=== PATIENT | male | born 1965 | race Caucasian/White ===

== ENCOUNTER 2016-10-05 14:11 | Inpatient (IN) | payer OTHER ==
[~2016-10-05] VITALS: Ht 177.8 cm; Wt 69.8 kg
[2016-10-08] MEDS ORDERED: FLUO40CA PO (11:51)
[2016-10-08] MEDS ORDERED: OLAN20TA PO (11:51)
[2016-10-15] MEDS ORDERED: NEOSTIGMINE 3 MG/3 ML SYR IV ONE (12:00)
[2016-10-15] MEDS ORDERED: ONDANSETRON HCL 4 MG/2 ML VIAL IV PUSH ONE (12:00)
[2016-10-15] MEDS ORDERED: LACTATED RINGER'S 1000 ML INJ 1,000 ML IV ONE (12:00)
[2016-10-15] MEDS ORDERED: PHENYLEPH/NS 1000 MCG/10 ML SYR IV ONE (12:00)
[2016-10-15] MEDS ORDERED: PROPOFOL 200 MG/20 ML AMP IV ONE (12:00)
[2016-10-15 12:06] VITALS: BP 127/83; PULSE 66; RESP 16; TEMP 98; O2SAT 99
[2016-10-15] MEDS ORDERED: ALVIMOPAN 12 MG CAPSULE ONE (12:12)
[2016-10-15] MEDS ORDERED: LACTATED RINGER'S 1000 ML IV SCH (12:15)
[2016-10-15] MEDS: SODIUM CHLORID 0.9% 500 ML IV SCH (12:15)
[2016-10-15] MEDS ORDERED: METOPROLOL TARTRATE 25 MG TAB PO PRN (12:15)
[2016-10-15] MEDS ORDERED: ceFAZolin 1,000 MG/NS 100 ML IV SCH ×2 (12:15)
[2016-10-15] MEDS ORDERED: DEXT 5%-NACL 0.9% 1000 ML INJ 1,000 ML IV SCH (12:15)
[2016-10-15] MEDS ORDERED: METRONIDAZOLE 500 MG/100 ML ISONTONIC SOLN IV SCH (12:15)
[2016-10-15] MEDS ORDERED: INSULIN HUMAN REGULAR 1,000 UNITS/10 ML VIAL SQ PRN (12:15)
[2016-10-15] MEDS ORDERED: GLUCAGON 1 MG/ML VIAL ONE (12:24)
[2016-10-15] MEDS ORDERED: BUPIVACAINE HCL PF 0.5% 30 ML VIAL ONE (12:24)
[2016-10-15] MEDS ORDERED: fentaNYL CITRATE 250 MCG/5 ML AMP ONE (13:34)
[2016-10-15] MEDS ORDERED: ACETAMINOPHEN 1000 MG/100 ML VIAL IV ONE (13:34)
[2016-10-15] MEDS ORDERED: FAMOTIDINE 20 MG/2 ML VIAL ONE (13:34)
[2016-10-15] MEDS ORDERED: DEXAMETHASONE SOD PHOS 4 MG/ML VIAL ONE (13:35)
--- NOTE | 2016-10-15 13:36 | PD.HP.UP ---
H&P Update Note The Pre-Admit History and Physical Examination regarding the above named patient was reviewed (including, but not limited to, vital signs, heart, lungs, co-morbid conditions), and upon re-examination it is noted that: the patient's condition has not significantly changed since the last examination. Nimesh Piña MD Oct 15, 2016 13:35
[2016-10-15] MEDS ORDERED: SODIUM CHLORIDE 0.9% FLUSH 5 ML FLUSH IVF PRN (16:30)
[2016-10-15] MEDS ORDERED: BENZOCAINE 6 MG/MENTHOL 10 MG LOZENGE SUCK-ON PRN (16:30)
[2016-10-15] MEDS ORDERED: ENALAPRILAT 2.5 MG/2 ML VIAL IV PRN (16:30)
[2016-10-15] MEDS ORDERED: ACETAMINOPHEN/HYDROcodone 325 MG/5 MG TAB PO PRN (16:30)
[2016-10-15] MEDS ORDERED: ONDANSETRON HCL 4 MG/2 ML VIAL IV PRN (16:30)
[2016-10-15] MEDS ORDERED: Post-op Orders (for Pharmacy) MISC XX ONE (16:30)
[2016-10-15] MEDS ORDERED: NALOXONE HCL 0.4 MG/ML AMP IV PRN (16:30)
[2016-10-15] MEDS ORDERED: ACETAMINOPHEN 325 MG TAB PO PRN (16:30)
[2016-10-15] MEDS ORDERED: POTASSIUM CHLOR 20 MEQ PREMIX 100 ML IV PRN (16:30)
[2016-10-15] MEDS ORDERED: POTASSIUM CHLOR 40 MEQ PREMIX 100 ML IV PRN (16:30)
[2016-10-15] MEDS ORDERED: ENALAPRILAT 1.25 MG/ML VIAL IV PRN (16:30)
[2016-10-15] MEDS ORDERED: MORPHINE SULFATE 4 MG/ML INJ ONE (16:36)
--- NOTE | 2016-10-15 16:36 | HHI.PR ---
Immediate Post Op Note Procedure Date: Oct 15, 2016 Pre Op Diagnosis: Rectal cancer Post Op Diagnosis: same Surgeon: Nimesh Piña Resolution Manager(s): Ben Procedure: Exploratory laparotomy, LAR, ileostomy, omental flap Findings: ulcer at tumor site in distal rectum, mobilization splenic flexure, left lt colic vessels Complications: none Specimen(s) removed: rectosigmoid Estimated blood loss: 150cc Anesthesia: General Drains: VLADIMIR IVF Patient to: PACU Patient Condition: Good Nimesh Piña MD Oct 15, 2016 16:36
[2016-10-15] MEDS ORDERED: *ONDANSETRON 4 MG VIAL PERIprocedural Use ONLY ONE (16:43)
[2016-10-15] MEDS: METOCLOPRAMIDE HCL 10 MG/2 ML VIAL IVS SCH (17:00)
[2016-10-15] MEDS: D5-NS + KCL 20 MEQ INJ 1,000 ML IV SCH ×2 (17:00→21:55)
[2016-10-15] MEDS: MORPHINE SULFATE 30 MG/30 ML PCA IV SCH ×2 (17:01→20:16)
[2016-10-15] MEDS: KETOROLAC TROMETHAMINE 30 MG/ML (IVP) VIAL IVP PRN ×2 (17:03→23:17)
[2016-10-15] MEDS ORDERED: *PROMETHAZINE 25 MG/ML VIAL PERIprocedural use ONLY ONE (17:24)
[2016-10-15] MEDS ORDERED: DO NOT ADM ANY ANTICOAGULANT DRUGS XX PRN (17:30)
[2016-10-15 18:15] VITALS: BP 158/97; PULSE 63; RESP 18; TEMP 97.9; O2SAT 97
[2016-10-15 20:00] VITALS: BP 153/104; PULSE 66; PULSE 80; RESP 16; TEMP 97.5; O2SAT 98
[2016-10-15 21:00] VITALS: PULSE 86
[2016-10-15] MEDS: SODIUM CHLORIDE 0.9% FLUSH 5 ML FLUSH IVF SCH (21:00)
[2016-10-15] MEDS: metroNIDAZOLE 500 MG INJ 100 ML IV SCH (21:52)
[2016-10-15] MEDS: PCA - TOTAL MG MORPHINE DELIVERED PER SHIFT SCH (21:56)
[2016-10-15 22:00] VITALS: PULSE 80
[2016-10-15 23:00] VITALS: BP 155/99; PULSE 76; PULSE 95; RESP 16; TEMP 99.2; O2SAT 94
[2016-10-15] MEDS ORDERED: ACETAMINOPHEN 1000 MG/100 ML VIAL IV PRN (23:45)
[2016-10-16] VITALS (23 sets, daily range): BP systolic 124–134; BP diastolic 76–85; PULSE 68–106; RESP 16–18; TEMP 97.5–100.3; O2SAT 94–98
[2016-10-16] MEDS: MORPHINE SULFATE 30 MG/30 ML PCA IV SCH ×4 (03:25→21:07)
[2016-10-16] MEDS: SODIUM CHLORID 0.9% 500 ML IV SCH (04:55)
[2016-10-16] MEDS: METOCLOPRAMIDE HCL 10 MG/2 ML VIAL IVS SCH ×2 (05:16→18:06)
[2016-10-16] MEDS: PCA - TOTAL MG MORPHINE DELIVERED PER SHIFT SCH ×3 (06:00→19:54)
[2016-10-16] MEDS: D5-NS + KCL 20 MEQ INJ 1,000 ML IV SCH ×2 (06:02→10:09)
[2016-10-16] MEDS: metroNIDAZOLE 500 MG INJ 100 ML IV SCH ×2 (06:02→14:19)
[2016-10-16 06:48] LABS: AUTOMATED NEUTROPHIL # 10.8 TH/MM3 (1.8-7.7); BASOPHIL % 0.2 % (0.0-2.0); HEMATOCRIT 36.5 % (39.0-51.0); LYMPH % 4.5 % (9.0-44.0); LYMPHOCYTE # 0.6 TH/MM3 (1.0-4.8); MEAN CELL VOLUME 88.7 FL (80.0-100.0); MEAN CORPUSCULAR HEMOGLOBIN 29.5 PG (27.0-34.0); MEAN CORPUSCULAR HGB CONC 33.2 % (32.0-36.0); MONO % 7.7 % (0.0-8.0); NEUT % 87.6 % (16.0-70.0); PLATELET COUNT 319 TH/MM3 (150-450); RED BLOOD COUNT 4.11 MIL/MM3 (4.50-5.90); WHITE BLOOD COUNT 12.4 TH/MM3 (4.0-11.0)
[2016-10-16 06:55] LABS: HEMO FLAGS AUTO DIFF
[2016-10-16 07:08] LABS: POTASSIUM 3.9 MEQ/L (3.5-5.1)
[2016-10-16 08:16] LABS: PLATELET ESTIMATE SMEAR NORMAL (NORMAL); PLATELET MORPHOLOGY NORMAL (NORMAL); SCAN/DIFF AUTO DIFF CONFIRMED
[2016-10-16] MEDS: FLUoxetine HCL 20 MG CAP PO SCH (08:16)
[2016-10-16] MEDS: ALVIMOPAN 12 MG CAPSULE PO SCH ×2 (08:16→19:54)
[2016-10-16] MEDS: PANTOPRAZOLE SODIUM 40 MG VIAL IVP SCH (08:16)
[2016-10-16] MEDS: PANTOPRAZOLE SOD 40 MG DELAYED RELEASE TAB PO SCH (08:16)
[2016-10-16] MEDS: SODIUM CHLORIDE 0.9% FLUSH 5 ML FLUSH IVF SCH ×2 (08:17→19:54)
[2016-10-16] MEDS: OLANZapine 10 MG TAB PO SCH (09:00)
[2016-10-16] MEDS: KETOROLAC TROMETHAMINE 30 MG/ML (IVP) VIAL IVP PRN ×2 (12:31→19:53)
[2016-10-17] VITALS: BP 118/69; PULSE 76; RESP 16; TEMP 97.2; O2SAT 95
[2016-10-17] MEDS: D5-NS + KCL 20 MEQ INJ 1,000 ML IV SCH ×2 (01:10→12:01)
[2016-10-17] MEDS: KETOROLAC TROMETHAMINE 30 MG/ML (IVP) VIAL IVP PRN ×3 (02:21→17:52)
[2016-10-17 04:00] VITALS: BP 130/84; PULSE 74; RESP 16; TEMP 97.7; O2SAT 96
[2016-10-17] MEDS: METOCLOPRAMIDE HCL 10 MG/2 ML VIAL IVS SCH ×2 (05:00→17:39)
[2016-10-17 05:08] LABS: AUTOMATED NEUTROPHIL # 6.7 TH/MM3 (1.8-7.7); BASOPHIL % 0.5 % (0.0-2.0); EOSINOPHIL # 0.1 TH/MM3 (0-0.4); EOSINOPHIL % 1.6 % (0.0-4.0); HEMATOCRIT 31.8 % (39.0-51.0); HEMO FLAGS DIFF FINAL; LYMPHOCYTE # 0.7 TH/MM3 (1.0-4.8); MEAN CELL VOLUME 90.2 FL (80.0-100.0); MEAN CORPUSCULAR HEMOGLOBIN 30.1 PG (27.0-34.0); MEAN CORPUSCULAR HGB CONC 33.3 % (32.0-36.0); MONO % 9.6 % (0.0-8.0); NEUT % 80.3 % (16.0-70.0); PLATELET COUNT 285 TH/MM3 (150-450); RED BLOOD COUNT 3.52 MIL/MM3 (4.50-5.90); RED CELL DISTRIBUTION WIDTH 16.1 % (11.6-17.2); WHITE BLOOD COUNT 8.3 TH/MM3 (4.0-11.0)
[2016-10-17 05:38] LABS: BICARBONATE 27.1 MEQ/L (21.0-32.0); POTASSIUM 3.8 MEQ/L (3.5-5.1)
[2016-10-17] MEDS: PCA - TOTAL MG MORPHINE DELIVERED PER SHIFT SCH ×3 (05:45→22:00)
[2016-10-17] MEDS: MORPHINE SULFATE 30 MG/30 ML PCA IV SCH ×3 (06:17→22:10)
[2016-10-17 08:01] VITALS: BP 121/84; PULSE 72; RESP 17; TEMP 97.8; O2SAT 96
[2016-10-17] MEDS: FLUoxetine HCL 20 MG CAP PO SCH (08:19)
[2016-10-17] MEDS: PANTOPRAZOLE SODIUM 40 MG VIAL IVP SCH (08:19)
[2016-10-17] MEDS: ALVIMOPAN 12 MG CAPSULE PO SCH ×2 (08:20→22:11)
[2016-10-17] MEDS: SODIUM CHLORIDE 0.9% FLUSH 5 ML FLUSH IVF SCH ×2 (08:20→21:00)
[2016-10-17] MEDS: PANTOPRAZOLE SOD 40 MG DELAYED RELEASE TAB PO SCH (08:20)
[2016-10-17] MEDS: OLANZapine 10 MG TAB PO SCH (08:20)
[2016-10-17 12:00] VITALS: BP 146/84; PULSE 82; RESP 17; TEMP 97.1; O2SAT 97
[2016-10-17 16:00] VITALS: BP 136/87; PULSE 76; RESP 17; TEMP 97.5; O2SAT 98
[2016-10-17 20:00] VITALS: BP 139/82; PULSE 74; RESP 18; TEMP 97.4; O2SAT 98
--- NOTE | 2016-10-17 22:26 | HHI.PR ---
Subjective Remarks C/R surg POD #2 afebrile, VSS UO good VLADIMIR mod stoma functioning Objective - Vital Signs Date Time Temp Pulse Resp B/P Pulse Ox O2 Delivery O2 Flow Rate FiO2 10/17/16 22:10 18 10/17/16 16:00 97.5 76 136/87 98 10/16/16 03:32 Nasal Cannula 2.00 Result Diagram: 10/17/16 0420 10/17/16 0450 Objective Remarks PE alert Abd - soft, wound clean, VLADIMIR serous A/P Assessment and Plan Imp: adv diet, decr IVF OOB dc plans Nimesh Piña MD Oct 17, 2016 22:26
[2016-10-18] VITALS: BP 128/92; PULSE 69; RESP 16; TEMP 98.5; O2SAT 99
[2016-10-18] MEDS: D5-NS + KCL 20 MEQ INJ 1,000 ML IV SCH ×3 (01:21→21:39)
[2016-10-18] MEDS: KETOROLAC TROMETHAMINE 30 MG/ML (IVP) VIAL IVP PRN ×2 (01:31→14:29)
[2016-10-18] MEDS: METOCLOPRAMIDE HCL 10 MG/2 ML VIAL IVS SCH (05:00)
[2016-10-18] MEDS: PCA - TOTAL MG MORPHINE DELIVERED PER SHIFT SCH (05:54)
[2016-10-18] MEDS: MORPHINE SULFATE 30 MG/30 ML PCA IV SCH (07:26)
--- NOTE | 2016-10-18 07:41 | HHI.FF ---
Face to Face Verification Diagnosis: (1) Rectal cancer metastasized to intrapelvic lymph node Home Health Nursing Order: Medical education Signs/symptoms of disease process Wound care and dressing changes I have seen patient Mars Warren on 10/18/16. My clinical findings support the need for the requested home health care services because: Ltd mobility - disease progression Deconditioned w/ increased weakness I certify that my clinical findings support that this patient is homebound because: Post-op weakness Need for psychosocial assistance Nimesh Piña MD Oct 18, 2016 07:41
[2016-10-18 08:00] VITALS: BP 130/86; PULSE 72; RESP 18; TEMP 96.4; O2SAT 94
[2016-10-18] MEDS: SODIUM CHLORIDE 0.9% FLUSH 5 ML FLUSH IVF SCH ×2 (08:15→21:39)
[2016-10-18] MEDS: FLUoxetine HCL 20 MG CAP PO SCH (08:15)
[2016-10-18] MEDS: OLANZapine 10 MG TAB PO SCH (08:15)
[2016-10-18] MEDS: PANTOPRAZOLE SOD 40 MG DELAYED RELEASE TAB PO SCH (08:15)
[2016-10-18] MEDS: PANTOPRAZOLE SODIUM 40 MG VIAL IVP SCH (08:15)
[2016-10-18] MEDS: ALVIMOPAN 12 MG CAPSULE PO SCH ×2 (08:15→21:37)
[2016-10-18 12:00] VITALS: BP 108/76; PULSE 77; RESP 17; TEMP 96.7; O2SAT 98
[2016-10-18] MEDS: ACETAMINOPHEN/HYDROcodone 325 MG/5 MG TAB PO PRN ×3 (14:29→23:11)
[2016-10-18 16:00] VITALS: BP 109/81; PULSE 68; RESP 17; TEMP 98.5; O2SAT 97
--- NOTE | 2016-10-18 16:50 | MP ---
cc: LINH DE LEON M.D. DATE OF SURGERY: 10/15/2016 PREOPERATIVE DIAGNOSIS: Rectal cancer. PROCEDURE Exploratory laparotomy with proctosigmoidectomy, low pelvic anastomosis diverting ileostomy and omental flap. POSTOPERATIVE DIAGNOSIS Exploratory laparotomy with proctosigmoidectomy, low pelvic anastomosis diverting ileostomy and omental flap. SURGEON Dr. De Leon. SALES REPRESENTATIVE PRINTING PAPER: Dr. Yair Contreras PROCEDURE The patient was placed in the supine position. After adequate general anesthesia his legs were placed in [place] stirrups and supported appropriately. The abdomen and perineum were then prepped with Betadine solution and draped in the usual sterile fashion. With Dr. Contreras assistance the abdomen was opened through a midline incision. Exploration revealed the colon to be palpably normal without any obvious tumor even palpable below the cul-de-sac the small bowel was run from ligament of Treitz down to ileocecal valve and felt to be normal liver and gallbladder were unremarkable. The stomach and duodenum were normal. Great vessels were of normal caliber and fairly soft. First the sigmoid colon was mobilized medially by dividing along the white line of Toldt. The left ureter was identified and carefully preserved. Dissection then proceeded up the left gutter taking freeing the left colon off the retroperitoneum, taking down the splenic flexure entering the lesser sac. The omentum was then taken off the transverse colon. The right retroperitoneal space was then opened and the bowel dissected off the presacral fascia. The pedicle for the superior hemorrhoidal vessels identified and divided between 's obtaining hemostasis with Vicryl ties. The left colic vessels were able to be left. Dissection then proceeded down into the pelvis, elevating the bowel off the presacral fascia preserving the presacral nerves. Anteriorly the cul-de-sac was opened and the bowel dissected off the seminal vesicles on the prostatic capsule. After the pelvic floor was reached, anoscopy revealed a ulceration at the site of the previous tumor which had a distal margin just about above the dentate line. After full mobilization down to the pelvic floor. The bowel was able to be divided using the contour stapling device ensuring an adequate margin below the rectal ulcer. The bowel was then incised to reach the short rectal pouch without tension and with good blood supply, dividing the marginal artery at the appropriate point. The end of the bowel was then divided between a pursestring suture device and a Abelino clamp. The bowel was sized to accept an EEA stapling anvil and this was secured with a pursestring suture. Dr. Contreras inserted the EEA stapling instrument transanally under direct vision it was brought up to the staple line and the trocar advanced. The stapler was then reassembled closed and fired. Upon withdrawal two complete doughnuts of tissue was seen. Gentle insufflation did confirm an airtight anastomosis. The abdomen was then irrigated copiously with normal saline. Adequate hemostasis achieved. Clem-Jimenez drain was placed into the presacral space and brought up through a stab wound in the right lower quadrant secured to the skin with a nylon suture. The omentum was taken off the transverse colon passed down the left gutter and wrapped around the anastomosis. A circular stab wound was then created in the right midabdomen and a loop of distal ileum was chosen for the ileostomy. Avascular plane created in the mesentery and the distal end of the loop closed with a TA 60 stapling firing. The loop was then brought up through the stab wound without tension and with good blood supply. Midline incision closed anatomically with a running #1 PDS suture. Subcutaneous tissue was irrigated copiously and the skin closed with a running subcuticular suture of 3-0 Vicryl. Wound area washed with normal saline and dried, sterile dressing of Telfa and gauze applied. Finally the loop ileostomy was matured in the usual [place] fashion by creating an enterotomy above the staple line and maturing the proximal limb with a running chromic catgut suture. At completion the stoma did appear to be viable and was patent through the fascial level. Wound area washed with normal saline and dried, sterile dressing of Telfa and gauze applied. The patient tolerated the procedure quite well and was brought to recovery room in stable condition. The sponge and needle counts were correct at the end of the procedure. MD RAFAELA Dolan/ginna /12:09 AM /4:37 PM
[2016-10-18] MEDS ORDERED: METOCLOPRAMIDE HCL 10 MG/2 ML VIAL IVS PRN (17:00)
[2016-10-18 20:00] VITALS: BP 107/75; PULSE 69; RESP 17; TEMP 97.7; O2SAT 97
--- NOTE | 2016-10-18 20:35 | HHI.PR ---
Subjective Remarks C/R surg POD #3 afebrile, VSS UO good VLADIMIR mod stoma functioning Objective - Vital Signs Date Time Temp Pulse Resp B/P Pulse Ox O2 Delivery O2 Flow Rate FiO2 10/18/16 16:00 98.5 68 17 109/81 97 10/16/16 03:32 Nasal Cannula 2.00 Result Diagram: 10/17/16 0420 10/17/16 0450 Objective Remarks PE alert Abd - soft, wound clean, VLADIMIR serous, stoma liquid A/P Assessment and Plan Imp: adv diet, decr IVF OOB dc plans path reviwed Nimesh Piña MD Oct 18, 2016 20:35
[2016-10-19] VITALS: BP 142/82; PULSE 59; RESP 17; TEMP 96.5; O2SAT 97
[2016-10-19] MEDS: ACETAMINOPHEN/HYDROcodone 325 MG/5 MG TAB PO PRN ×4 (04:15→16:34)
[2016-10-19 08:00] VITALS: BP 124/86; PULSE 72; RESP 16; TEMP 98.1; O2SAT 95
[2016-10-19] MEDS: PANTOPRAZOLE SOD 40 MG DELAYED RELEASE TAB PO SCH (08:10)
[2016-10-19] MEDS: OLANZapine 10 MG TAB PO SCH (08:11)
[2016-10-19] MEDS: PANTOPRAZOLE SODIUM 40 MG VIAL IVP SCH (08:11)
[2016-10-19] MEDS: ALVIMOPAN 12 MG CAPSULE PO SCH (08:11)
[2016-10-19] MEDS: SODIUM CHLORIDE 0.9% FLUSH 5 ML FLUSH IVF SCH (08:11)
[2016-10-19] MEDS: FLUoxetine HCL 20 MG CAP PO SCH (08:11)
[2016-10-19 12:00] VITALS: BP 111/78; PULSE 83; RESP 20; TEMP 97.3; O2SAT 96
[2016-10-19 16:00] VITALS: BP 113/93; PULSE 74; RESP 18; TEMP 97.4; O2SAT 98
[2016-10-19] MEDS ORDERED: HYDR-3516 PO (17:15)
--- NOTE | 2016-10-26 18:28 | PQ ---
Physician Query Response Document PATIENT: MOSES NAVARRO : 1965 ADMIT DATE: 10/15/2016 11:26 AM DISCH DATE: 10/19/2016 6:49 PM RESPONDING PROVIDER #: [email or web address] QUERY TEXT: Clarification of Clinical Diagnostic Findings Please clarify documentation or clinical relevance for the clinical / diagnostic findings or whether those are insignificant or unable to be further specified. Please review patient's pathology report. Do you agree with pathologist's diagnosis of pT3,pN2b. 1)agree 2)disagree 3)other diagnosis(please specify) If you have any additional questions/comments and/or concerns please call [employer] Hotline @[phone] The patient's Clinical Indicators include: Dr. DE LEON,this patient underwent proctosigmoidectomy with excision of lymph nodes. The pathologist gives the diagnosis of pT3,pN2b. Please review the question below and answer to the best of your ability. THANK YOU Query created by: Harshad Solares on 10/23/2016 7:29 AM RESPONSE TEXT: I agree Electronically signed by: Nimesh De Leon MD 10/26/2016 6:25 PM
== END 2016-10-19 18:49 | disposition home or self-care (01) | DRG 330 ==
LOC: HSDI 10-15 11:26 → EDUNIT# 10-15 14:00 → HCIN 10-15 17:47 → N07A 10-16 16:19
PROVIDERS: ADMIT Colon & Rectal Surgery; ATTEND Colon & Rectal Surgery
PROC: 0WUF07Z Supplement Abdominal Wall with Autologous Tissue Substitute, Open Approach (ICD-10-PCS; 2016-10-15)
PROC: 0D1B0Z4 Bypass Ileum to Cutaneous, Open Approach (ICD-10-PCS; 2016-10-15)
PROC: 0WJP0ZZ Inspection of Gastrointestinal Tract, Open Approach (ICD-10-PCS; 2016-10-15)
PROC: 0DJD8ZZ Inspection of Lower Intestinal Tract, Via Natural or Artificial Opening Endoscopic (ICD-10-PCS; 2016-10-15)
PROC: 0DBN0ZZ Excision of Sigmoid Colon, Open Approach (ICD-10-PCS; principal; 2016-10-15 14:08)
PROC: 0DBP0ZZ Excision of Rectum, Open Approach (ICD-10-PCS; 2016-10-15 14:08)
PROC: 07BC0ZX Excision of Pelvis Lymphatic, Open Approach, Diagnostic (ICD-10-PCS; 2016-10-15 14:08)
DX: C20 Malignant neoplasm of rectum (principal); K62.6 Ulcer of anus and rectum; C77.2 Secondary and unspecified malignant neoplasm of intra-abdominal lymph nodes; G47.30 Sleep apnea, unspecified; Z86.010 Personal history of colon polyps
CPT/HCPCS: 80048; 85025; 86850; 86900; 86901; 88307; 88309; 94150; C9113; J0131; J0690; J1100; J1610; J1885; J2270; J2370; J2405; J2550; J2710; J2765; J3010; J3480; J7120

== ENCOUNTER → 2016-10-08 | Outpatient (CLI) | payer OTHER ==
[~2016-10-08] MED LIST: ADDE30TA PO; FLUO40CA PO; HYDR-3516 PO; OLAN20TA PO
[2016-10-08 12:26] LABS: AUTOMATED NEUTROPHIL # 3.9 TH/MM3 (1.8-7.7); BASOPHIL % 0.6 % (0.0-2.0); EOSINOPHIL # 0.1 TH/MM3 (0-0.4); HEMATOCRIT 40.6 % (39.0-51.0); HEMO FLAGS DIFF FINAL; LYMPH % 15.3 % (9.0-44.0); LYMPHOCYTE # 0.8 TH/MM3 (1.0-4.8); MEAN CELL VOLUME 90.5 FL (80.0-100.0); MEAN CORPUSCULAR HEMOGLOBIN 29.5 PG (27.0-34.0); MEAN CORPUSCULAR HGB CONC 32.6 % (32.0-36.0); MONO % 10.1 % (0.0-8.0); PLATELET COUNT 357 TH/MM3 (150-450); RED BLOOD COUNT 4.49 MIL/MM3 (4.50-5.90); RED CELL DISTRIBUTION WIDTH 16.4 % (11.6-17.2); WHITE BLOOD COUNT 5.3 TH/MM3 (4.0-11.0)
--- NOTE | 2016-10-08 12:34 | RADRPT ---
EXAM DATE/TIME: 10/08/2016 12:09 [place] COMPARISON: No previous studies available for comparison. INDICATIONS : Evaluate for communicable disease, pneumonia, pneumothorax. Pre op Bowel Ressection MEDICAL HISTORY : None. SURGICAL HISTORY : None. ENCOUNTER: Initial ACUITY: 1 day PAIN SCORE: 0/10 LOCATION: Bilateral chest FINDINGS: PA and lateral views of the chest demonstrate a normal-sized cardiac silhouette. There is no effusion , consolidation, or pneumothorax. The bones and soft tissues demonstrate no acute abnormality. Left c hest wall [id number] is present with distal tip in the superior vena cava. CONCLUSION: No acute cardiopulmonary abnormality is identified. Dhiraj Ayala MD on October 08, 2016 at 12:32 Board Certified Radiologist. This report was verified electronically.
[2016-10-08 12:35] LABS: APTT (PATIENT) 26.7 SEC (24.3-30.1); PROTHROMBIN TIME - PATIENT 10.6 SEC (9.8-11.6)
[2016-10-08 12:41] LABS: BLOOD, URINE NEG (NEG); GLUCOSE,URINE NEG (NEG); KETONE, URINE NEG (NEG); NITRITE,URINE NEG (NEG); PH, URINE 7.5 (5.0-8.5); URINE COLOR LIGHT-YELLOW (YELLW/STRAW)
[2016-10-08 12:42] LABS: COMMENT (UR) CULT NOT INDICATED; CULTURE IF INDICATED CULT NOT INDICATED
[2016-10-08 13:00] LABS: ANION GAP 7 MEQ/L (5-15); AST (GOT) 8 U/L (15-37); BICARBONATE 29.3 MEQ/L (21.0-32.0); BLOOD UREA NITROGEN 8 MG/DL (7-18); CHLORIDE 103 MEQ/L (98-107); GLOMERULAR FILTRATION RATE 90 ML/MIN (>89); GLUCOSE,FASTING 93 MG/DL (74-99); POTASSIUM 4.6 MEQ/L (3.5-5.1); SODIUM (NA) 139 MEQ/L (136-145)
[2016-10-08 13:04] LABS: ALKALINE PHOSPHATASE 48 U/L (45-117); ALT (GPT) 16 U/L (12-78); TOTAL BILIRUBIN ADULT 0.4 MG/DL (0.2-1.0)
--- NOTE | 2016-10-09 15:55 | EKG ---
Date Performed: 10/08/2016 Time Performed: 11:41:05 PTAGE: 50 years EKG: Sinus rhythm WITH SINUS ARRHYTHMIA NORMAL ECG NO PREVIOUS TRACING DOCTOR: Leobardo Mackey Interpretating Date/Time 10/09/2016 15:53:50
== END ==
LOC: CPRE 11:17
PROVIDERS: ATTEND Colon & Rectal Surgery
DX: Z01.810 Encounter for preprocedural cardiovascular examination (principal); Z01.811 Encounter for preprocedural respiratory examination; Z01.812 Encounter for preprocedural laboratory examination; C20 Malignant neoplasm of rectum
CPT/HCPCS: 36415; 71020; 80053; 81001; 82378; 85025; 85610; 85730; 93005

== ENCOUNTER 2016-12-20 12:49 | Inpatient (IN) | payer OTHER ==
[~2016-12-20] VITALS: Ht 177.8 cm; Wt 65.7 kg
[~2016-12-20 12:49] MED LIST changes: -ADDE30TA PO; -HYDR-3516 PO
[2016-12-25] MEDS ORDERED: ADDE30TA PO (14:49)
[2016-12-26] MEDS ORDERED: PROPOFOL 200 MG/20 ML AMP IV ONE (12:00)
[2016-12-26] MEDS ORDERED: ePHEDrine/NS 25 MG/5 ML SYR IV ONE (12:00)
--- NOTE | 2016-12-26 12:08 | PD.HP.UP ---
H&P Update Note The Pre-Admit History and Physical Examination regarding the above named patient was reviewed (including, but not limited to, vital signs, heart, lungs, co-morbid conditions), and upon re-examination it is noted that: the patient's condition has not significantly changed since the last examination. Nimesh Piña MD December 26, 2016 12:08
[2016-12-26] MEDS ORDERED: LACTATED RINGER'S 1000 ML IV PRN (12:30)
[2016-12-26] MEDS ORDERED: METRONIDAZOLE 500 MG/100 ML ISONTONIC SOLN IV SCH (12:30)
[2016-12-26] MEDS ORDERED: INSULIN HUMAN REGULAR 1,000 UNITS/10 ML VIAL SQ PRN (12:30)
[2016-12-26] MEDS ORDERED: ALVIMOPAN 12 MG CAPSULE - On Call PO SCH (12:30)
[2016-12-26] MEDS ORDERED: ceFAZolin 1,000 MG/NS 100 ML IV SCH ×2 (12:30)
[2016-12-26] MEDS ORDERED: SODIUM CHLORID 0.9% 500 ML IV PRN (12:30)
[2016-12-26] MEDS ORDERED: POVIDONE IODINE 5% (ANTISEPSIS KIT) 4 APPLICATIONS EACH NARE PRN (12:30)
[2016-12-26] MEDS ORDERED: METOPROLOL TARTRATE 25 MG TAB PO PRN (12:30)
[2016-12-26] MEDS ORDERED: CHLORHEXIDINE GLUCONATE 2 % 1 PACK (2 CLOTHS) TOPICAL PRN (12:30)
[2016-12-26 12:41] VITALS: BP 150/95; PULSE 87; RESP 16; TEMP 98.1; O2SAT 100
[2016-12-26 12:59] LABS: BACTERIA, URINE RARE /hpf; BLOOD, URINE NEG (NEG); GLUCOSE,URINE NEG (NEG); KETONE, URINE NEG (NEG); MUCUS URINE FEW /lpf (OCC); NITRITE,URINE NEG (NEG); PH, URINE 5.5 (5.0-8.5); SQUAMOUS EPITHELIAL CELL URINE <1 /hpf (0-5); URINE COLOR YELLOW (YELLW/STRAW)
[2016-12-26] MEDS: DEXT 5%-NACL 0.9% 1000 ML INJ 1,000 ML IV SCH ×2 (13:00→21:00)
[2016-12-26 13:02] LABS: COMMENT (UR) CULT NOT INDICATED; CULTURE IF INDICATED CULT NOT INDICATED
[2016-12-26] MEDS ORDERED: BUPIVACAINE HCL PF 0.5% 30 ML VIAL ONE (13:12)
[2016-12-26 13:17] LABS: BASOPHIL % 0.7 % (0.0-2.0); EOSINOPHIL # 0.1 TH/MM3 (0-0.4); EOSINOPHIL % 2.1 % (0.0-4.0); HEMATOCRIT 35.2 % (39.0-51.0); HEMO FLAGS DIFF FINAL; LYMPH % 17.7 % (9.0-44.0); LYMPHOCYTE # 0.6 TH/MM3 (1.0-4.8); MEAN CELL VOLUME 86.5 FL (80.0-100.0); MEAN CORPUSCULAR HEMOGLOBIN 29.2 PG (27.0-34.0); MEAN CORPUSCULAR HGB CONC 33.8 % (32.0-36.0); MONO % 22.5 % (0.0-8.0); PLATELET COUNT 382 TH/MM3 (150-450); RED BLOOD COUNT 4.07 MIL/MM3 (4.50-5.90); RED CELL DISTRIBUTION WIDTH 15.4 % (11.6-17.2); WHITE BLOOD COUNT 3.5 TH/MM3 (4.0-11.0)
[2016-12-26 13:28] LABS: APTT (PATIENT) 28.9 SEC (24.3-30.1); PROTHROMBIN TIME - PATIENT 11.2 SEC (9.8-11.6)
[2016-12-26] MEDS ORDERED: DEXAMETHASONE SOD PHOS 4 MG/ML VIAL ONE (13:33)
[2016-12-26] MEDS ORDERED: FAMOTIDINE 20 MG/2 ML VIAL ONE (13:33)
[2016-12-26 13:39] LABS: ALT (GPT) 31 U/L (12-78); ANION GAP 9 MEQ/L (5-15); AST (GOT) 22 U/L (15-37); BICARBONATE 29.2 MEQ/L (21.0-32.0); BLOOD UREA NITROGEN 11 MG/DL (7-18); CHLORIDE 99 MEQ/L (98-107); GLOMERULAR FILTRATION RATE 84 ML/MIN (>89); POTASSIUM 3.1 MEQ/L (3.5-5.1); SODIUM (NA) 137 MEQ/L (136-145)
[2016-12-26 13:42] LABS: ALKALINE PHOSPHATASE 54 U/L (45-117); TOTAL BILIRUBIN ADULT 0.5 MG/DL (0.2-1.0)
[2016-12-26] MEDS ORDERED: POTASSIUM CHLOR 20 MEQ PREMIX 100 ML ONE (14:01)
[2016-12-26] MEDS ORDERED: ACETAMINOPHEN 1000 MG/100 ML VIAL IV ONE (14:02)
--- NOTE | 2016-12-26 15:26 | HHI.PR ---
Immediate Post Op Note Procedure Date: December 26, 2016 Pre Op Diagnosis: Hx rectal cancer, attn ileostomy Post Op Diagnosis: Same Surgeon: Nimesh Piña Equipment Services Associate(s): None Procedure: Exploratory lap + SBR, closure ileostomy Findings: adhesions Complications: None Specimen(s) removed: SB Estimated blood loss: min Anesthesia: General Drains: None IVF Patient to: PACU Patient Condition: Good Nimesh Piña MD December 26, 2016 15:26
[2016-12-26] MEDS ORDERED: BENZOCAINE 6 MG/MENTHOL 10 MG LOZENGE BUCCAL PRN (15:30)
[2016-12-26] MEDS ORDERED: SODIUM CHLORIDE 0.9% FLUSH 5 ML FLUSH IVF PRN (15:30)
[2016-12-26] MEDS ORDERED: POTASSIUM CHLOR 40 MEQ PREMIX 100 ML IV PRN (15:30)
[2016-12-26] MEDS ORDERED: ACETAMINOPHEN/HYDROcodone 325 MG/5 MG TAB PO PRN (15:30)
[2016-12-26] MEDS ORDERED: NALOXONE HCL 0.4 MG/ML AMP IV PRN (15:30)
[2016-12-26] MEDS ORDERED: ENALAPRILAT 1.25 MG/ML VIAL IV PRN (15:30)
[2016-12-26] MEDS ORDERED: KETOROLAC TROMETHAMINE 30 MG/ML (IVP) VIAL IVP PRN (15:30)
[2016-12-26] MEDS ORDERED: ENALAPRILAT 2.5 MG/2 ML VIAL IV PRN (15:30)
[2016-12-26] MEDS ORDERED: Post-op Orders (for Pharmacy) MISC XX ONE (15:30)
[2016-12-26] MEDS ORDERED: ACETAMINOPHEN 325 MG TAB PO PRN (15:30)
[2016-12-26] MEDS ORDERED: POTASSIUM CHLOR 20 MEQ PREMIX 100 ML IV PRN (15:30)
[2016-12-26] MEDS ORDERED: fentaNYL CITRATE 250 MCG/5 ML AMP ONE (15:33)
[2016-12-26] MEDS ORDERED: *morphine SULFATE 8 MG/ML PERIprocedure ONLY ONE ×3 (15:36→16:21)
[2016-12-26] MEDS ORDERED: DO NOT ADM ANY ANTICOAGULANT DRUGS PRN (15:45)
[2016-12-26] MEDS ORDERED: *ONDANSETRON 4 MG VIAL PERIprocedural Use ONLY ONE (16:01)
[2016-12-26] MEDS: D5-NS + KCL 20 MEQ INJ 1,000 ML IV SCH ×2 (16:30→21:08)
[2016-12-26] MEDS ORDERED: *HYDROmorphone PF 1 MG VIAL PERIprocedural Use ONLY ONE (16:51)
[2016-12-26] MEDS: MORPHINE SULFATE 30 MG/30 ML PCA IV SCH (17:27)
[2016-12-26 18:00] VITALS: BP 133/86; PULSE 70; RESP 16; TEMP 95.7; O2SAT 97
[2016-12-26 20:00] VITALS: BP 120/76; PULSE 69; RESP 18; TEMP 96.9; O2SAT 97
[2016-12-26 20:19] VITALS: O2SAT 97
[2016-12-26] MEDS: METOCLOPRAMIDE HCL 10 MG/2 ML VIAL IVS SCH (21:00)
[2016-12-26] MEDS: SODIUM CHLORIDE 0.9% FLUSH 5 ML FLUSH IVF SCH (21:00)
[2016-12-26] MEDS: PCA - TOTAL MG MORPHINE DELIVERED PER SHIFT SCH (21:06)
[2016-12-26] MEDS: metroNIDAZOLE 500 MG INJ 100 ML IV SCH (21:07)
[2016-12-27] VITALS (7 sets, daily range): BP systolic 93–136; BP diastolic 61–73; PULSE 65–85; RESP 14–17; TEMP 95.4–98; O2SAT 95–98
[2016-12-27] MEDS: MORPHINE SULFATE 30 MG/30 ML PCA IV SCH ×4 (00:43→22:43)
[2016-12-27] MEDS: DEXT 5%-NACL 0.9% 1000 ML INJ 1,000 ML IV SCH (05:00)
[2016-12-27] MEDS: D5-NS + KCL 20 MEQ INJ 1,000 ML IV SCH ×3 (05:40→21:35)
[2016-12-27] MEDS: PCA - TOTAL MG MORPHINE DELIVERED PER SHIFT SCH ×3 (05:40→21:31)
[2016-12-27] MEDS: metroNIDAZOLE 500 MG INJ 100 ML IV SCH ×2 (05:42→14:02)
[2016-12-27 06:13] LABS: AUTOMATED NEUTROPHIL # 3.5 TH/MM3 (1.8-7.7); BASOPHIL % 0.3 % (0.0-2.0); EOSINOPHIL % 0.4 % (0.0-4.0); HEMO FLAGS DIFF FINAL; LYMPH % 7.6 % (9.0-44.0); LYMPHOCYTE # 0.4 TH/MM3 (1.0-4.8); MEAN CELL VOLUME 88.4 FL (80.0-100.0); MEAN CORPUSCULAR HEMOGLOBIN 28.8 PG (27.0-34.0); MEAN CORPUSCULAR HGB CONC 32.5 % (32.0-36.0); MONO % 20.4 % (0.0-8.0); NEUT % 71.3 % (16.0-70.0); PLATELET COUNT 338 TH/MM3 (150-450); RED BLOOD COUNT 3.85 MIL/MM3 (4.50-5.90)
[2016-12-27 06:40] LABS: BICARBONATE 27.5 MEQ/L (21.0-32.0); POTASSIUM 3.9 MEQ/L (3.5-5.1)
--- NOTE | 2016-12-27 07:32 | HHI.PR ---
Subjective Remarks C/R Surg POD #1 afebrile, VSS UO good Objective - Vital Signs Date Time Temp Pulse Resp B/P Pulse Ox O2 Delivery O2 Flow Rate FiO2 12/27/16 06:44 18 12/27/16 04:00 95.4 65 101/65 96 12/26/16 20:19 21 12/26/16 17:00 Nasal Cannula 2 Result Diagram: 12/27/16 0545 12/27/16 0545 Objective Remarks PE alert Abd - soft, wound dry, min tympany A/P Assessment and Plan Imp: stable post-op OOB decr IVF Nimesh Piña MD December 27, 2016 07:32
[2016-12-27] MEDS: PANTOPRAZOLE SOD 40 MG DELAYED RELEASE TAB PO SCH (07:45)
[2016-12-27] MEDS: PANTOPRAZOLE SODIUM 40 MG VIAL IVP SCH (07:45)
[2016-12-27] MEDS: SODIUM CHLORIDE 0.9% FLUSH 5 ML FLUSH IVF SCH ×2 (07:45→21:00)
[2016-12-27] MEDS: METOCLOPRAMIDE HCL 10 MG/2 ML VIAL IVS SCH ×2 (07:45→21:27)
[2016-12-27] MEDS: ALVIMOPAN 12 MG CAPSULE - Post-op dosing PO SCH ×2 (07:45→21:28)
[2016-12-27] MEDS ORDERED: ALVIMOPAN 12 MG CAPSULE PO SCH (21:00)
[2016-12-27] MEDS: ACETAMINOPHEN/HYDROcodone 325 MG/5 MG TAB PO PRN (21:30)
[2016-12-28] VITALS: BP 112/62; PULSE 81; RESP 17; TEMP 98.9; O2SAT 95
[2016-12-28 04:00] VITALS: BP 120/61; PULSE 76; RESP 17; TEMP 98.6; O2SAT 98
[2016-12-28] MEDS: PCA - TOTAL MG MORPHINE DELIVERED PER SHIFT SCH ×3 (06:00→20:19)
[2016-12-28] MEDS: ACETAMINOPHEN/HYDROcodone 325 MG/5 MG TAB PO PRN ×4 (06:09→22:07)
[2016-12-28] MEDS: ONDANSETRON HCL 4 MG/2 ML VIAL IV PRN ×2 (06:28→13:45)
[2016-12-28 06:56] LABS: AUTOMATED NEUTROPHIL # 5.5 TH/MM3 (1.8-7.7); BASOPHIL % 0.3 % (0.0-2.0); EOSINOPHIL # 0.1 TH/MM3 (0-0.4); HEMATOCRIT 35.2 % (39.0-51.0); HEMO FLAGS DIFF FINAL; LYMPH % 7.7 % (9.0-44.0); LYMPHOCYTE # 0.6 TH/MM3 (1.0-4.8); MEAN CELL VOLUME 88.1 FL (80.0-100.0); MEAN CORPUSCULAR HEMOGLOBIN 28.7 PG (27.0-34.0); MEAN CORPUSCULAR HGB CONC 32.6 % (32.0-36.0); MONO % 15.4 % (0.0-8.0); NEUT % 75.6 % (16.0-70.0); PLATELET COUNT 348 TH/MM3 (150-450); RED BLOOD COUNT 3.99 MIL/MM3 (4.50-5.90); RED CELL DISTRIBUTION WIDTH 15.8 % (11.6-17.2); WHITE BLOOD COUNT 7.2 TH/MM3 (4.0-11.0)
[2016-12-28 07:10] LABS: BICARBONATE 26.5 MEQ/L (21.0-32.0); POTASSIUM 3.7 MEQ/L (3.5-5.1)
[2016-12-28 08:00] VITALS: BP 137/83; PULSE 82; RESP 19; TEMP 99.4; O2SAT 96
[2016-12-28] MEDS: PANTOPRAZOLE SODIUM 40 MG VIAL IVP SCH (09:00)
[2016-12-28] MEDS: SODIUM CHLORIDE 0.9% FLUSH 5 ML FLUSH IVF SCH ×2 (09:00→20:16)
[2016-12-28] MEDS: ALVIMOPAN 12 MG CAPSULE - Post-op dosing PO SCH ×2 (09:13→20:18)
[2016-12-28] MEDS: METOCLOPRAMIDE HCL 10 MG/2 ML VIAL IVS SCH ×2 (09:13→20:16)
[2016-12-28] MEDS: D5-NS + KCL 20 MEQ INJ 1,000 ML IV SCH ×2 (09:14→20:15)
[2016-12-28] MEDS: PANTOPRAZOLE SOD 40 MG DELAYED RELEASE TAB PO SCH (09:14)
[2016-12-28] MEDS: MORPHINE SULFATE 30 MG/30 ML PCA IV SCH ×2 (10:11→20:13)
--- NOTE | 2016-12-28 11:59 | MP ---
cc: LINH DE LEON M.D. DATE OF SURGERY 12/26/2016 PREOPERATIVE DIAGNOSIS History of rectal cancer, attention to ileostomy. PROCEDURE Exploratory laparotomy with segmental small bowel resection and closure of ileostomy. POSTOPERATIVE DIAGNOSIS History of rectal cancer, attention to ileostomy. SURGEON Dr. De Leon PROCEDURE The patient was placed in the supine position. After adequate general anesthesia, his abdomen was prepped with Betadine solution and draped in the usual sterile fashion. An Elliptical incision was made around the ileostomy dissecting the proximal and distal limbs free from the subcutaneous tissues. Fascial attachments were released and the bowel mobilized up into the incision. Additional loops of small bowel were stuck to the mesentery and these were dissected free and returned back to the abdomen. Local exploration around the stoma did not reveal any sign of recurrent cancer. An avascular plane was then created proximal and distal to the ileostomy. Distally, the bowel divided between Kochers, proximally the bowel was divided using a MINH stapling device. The omentum was then taken in sections and divided between 's obtaining hemostasis with Vicryl ties. Bowel continuity was then restored by firing the MINH stapler across the antimesenteric ends of the bowel closing the enterotomy with a TA-60 stapler. The mesenteric defect closed with a Vicryl suture and a 3-0 Vicryl crotch suture was placed as well. The bowel was then returned to the abdominal cavity. The abdominal incision was then closed anatomically in two layers using #1 PDS sutures to reapproximate the respective fascial layers. The subcutaneous tissues were irrigated copiously and the skin closed in two layers using interrupted 3-0 Vicryl sutures to close the space and then a 3-0 Vicryl suture for the subcuticular closure of the skin. The wound area washed with normal saline and dried, sterile dressing of Telfa and gauze applied. The patient tolerated the procedure quite well and was brought to the recovery room in stable condition. MD RAFAELA Dolan/AIDA /11:24 PM /11:51 AM
[2016-12-28 12:00] VITALS: BP 133/83; PULSE 75; RESP 20; TEMP 97.8; O2SAT 97
[2016-12-28 16:00] VITALS: BP 180/97; PULSE 81; RESP 19; TEMP 97.6; O2SAT 97
--- NOTE | 2016-12-28 17:14 | HHI.PR ---
Subjective Remarks C/R Surg POD #2 afebrile, VSS UO good Objective - Vital Signs Date Time Temp Pulse Resp B/P Pulse Ox O2 Delivery O2 Flow Rate FiO2 12/28/16 16:00 97.6 81 19 180/97 97 12/27/16 09:20 21 12/26/16 17:00 Nasal Cannula 2 Result Diagram: 12/28/16 0542 12/28/16 0542 Objective Remarks PE alert Abd - full, wound dry, no flatus A/P Assessment and Plan Imp: OOB decr IVF min PO until flatus Nimesh Piña MD December 28, 2016 17:14
[2016-12-28] MEDS ORDERED: FLUoxetine HCL 20 MG CAP PO SCH (17:15)
[2016-12-28 20:00] VITALS: BP 116/85; PULSE 77; RESP 17; TEMP 96.7; O2SAT 100
[2016-12-28] MEDS: FLUoxetine HCL 20 MG CAP PO SCH (20:19)
[2016-12-28] MEDS: OLANZapine 10 MG TAB PO SCH (20:26)
[2016-12-28] MEDS ORDERED: DEXTROAMPHETAMINE/AMPHETAMINE 30 MG TAB PO SCH (21:00)
[2016-12-29] VITALS: BP 110/81; PULSE 70; RESP 17; TEMP 97.8; O2SAT 100
[2016-12-29] MEDS: ACETAMINOPHEN/HYDROcodone 325 MG/5 MG TAB PO PRN ×5 (01:50→21:36)
[2016-12-29 04:00] VITALS: BP 159/92; PULSE 76; RESP 17; TEMP 96.8; O2SAT 97
[2016-12-29] MEDS: PCA - TOTAL MG MORPHINE DELIVERED PER SHIFT SCH ×3 (04:59→22:00)
[2016-12-29] MEDS: D5-NS + KCL 20 MEQ INJ 1,000 ML IV SCH (04:59)
[2016-12-29 08:00] VITALS: BP 152/96; PULSE 78; RESP 16; TEMP 98.1; O2SAT 96
[2016-12-29] MEDS: PANTOPRAZOLE SOD 40 MG DELAYED RELEASE TAB PO SCH (09:00)
[2016-12-29] MEDS: ALVIMOPAN 12 MG CAPSULE - Post-op dosing PO SCH ×2 (09:00→21:00)
[2016-12-29] MEDS: METOCLOPRAMIDE HCL 10 MG/2 ML VIAL IVS SCH ×2 (09:34→21:35)
[2016-12-29] MEDS: SODIUM CHLORIDE 0.9% FLUSH 5 ML FLUSH IVF SCH ×2 (09:35→21:00)
[2016-12-29] MEDS: PANTOPRAZOLE SODIUM 40 MG VIAL IVP SCH (09:35)
[2016-12-29 12:00] VITALS: BP 161/97; PULSE 85; RESP 18; TEMP 98; O2SAT 96
[2016-12-29 16:00] VITALS: BP 160/98; PULSE 81; RESP 18; TEMP 98; O2SAT 97
[2016-12-29] MEDS: ONDANSETRON HCL 4 MG/2 ML VIAL IV PRN (18:37)
[2016-12-29] MEDS: MORPHINE SULFATE 30 MG/30 ML PCA IV SCH (18:39)
[2016-12-29 20:00] VITALS: BP 164/92; PULSE 75; RESP 18; TEMP 98.4; O2SAT 97
[2016-12-29] MEDS: FLUoxetine HCL 20 MG CAP PO SCH (21:35)
[2016-12-29] MEDS: OLANZapine 10 MG TAB PO SCH (21:35)
[2016-12-30] VITALS: BP 142/88; PULSE 76; RESP 18; TEMP 97.9; O2SAT 94
[2016-12-30] MEDS: ACETAMINOPHEN/HYDROcodone 325 MG/5 MG TAB PO PRN ×3 (01:52→10:32)
[2016-12-30] MEDS: D5-NS + KCL 20 MEQ INJ 1,000 ML IV SCH ×3 (01:52→12:32)
[2016-12-30] MEDS: PCA - TOTAL MG MORPHINE DELIVERED PER SHIFT SCH ×2 (06:00→11:20)
[2016-12-30 08:00] VITALS: BP 150/98; PULSE 68; RESP 17; TEMP 98.4; O2SAT 95
[2016-12-30] MEDS: ALVIMOPAN 12 MG CAPSULE - Post-op dosing PO SCH (09:00)
[2016-12-30] MEDS: SODIUM CHLORIDE 0.9% FLUSH 5 ML FLUSH IVF SCH (09:00)
[2016-12-30] MEDS ORDERED: HYDR-3516 PO (10:30)
[2016-12-30] MEDS: PANTOPRAZOLE SOD 40 MG DELAYED RELEASE TAB PO SCH (10:30)
[2016-12-30] MEDS: PANTOPRAZOLE SODIUM 40 MG VIAL IVP SCH (10:30)
[2016-12-30] MEDS: METOCLOPRAMIDE HCL 10 MG/2 ML VIAL IVS SCH (10:31)
[2016-12-30 12:00] VITALS: BP 140/90; PULSE 75; RESP 17; TEMP 95.8; O2SAT 96
--- NOTE | 2017-01-21 13:28 | MD ---
cc: LINH DE LEON M.D. ADMISSION DATE: 12/26/2016 DISCHARGE DATE: 12/30/2016 ADMISSION DIAGNOSIS History of rectal cancer, attention to ileostomy. PROCEDURES 12/26/2016 - Exploratory laparotomy with segmental small bowel resection and closure of ileostomy. DISCHARGE DIAGNOSIS History of rectal cancer, attention to ileostomy. HISTORY OF PRESENT ILLNESS Mr. Warren is a 51-year-old male who we had seen previously after radiation chemotherapy for rectal cancer. Back in October of 2016 he underwent resection of the rectal tumor with a very low pelvic anastomosis and diverting ileostomy. The patient has done well since that surgery and has recovered full activity level. His diet has been good and his weight has been stable. Evaluation of the distal anastomosis shows no sign of any stricturing or sinus formation and he presents at this time for closure of his ileostomy. Please see the history and physical for more complete past medical and surgical history. PERTINENT PHYSICAL A very pleasant, muscular yet thin male in no acute distress. Abdomen was very soft and muscular, not distended. Normal bowel sounds. Previous incision has healed completely; no induration or thickening. The stoma as well pouched. Anal inspection revealed benign canal. Digital exam revealed good tone with the anastomosis easily palpable and patent. HOSPITAL COURSE After admission, the patient was taken to the operating room on December 26, 2016, at which point he underwent an exploratory laparotomy and segmental small bowel resection, closure of his ileostomy. He did tolerate the surgery quite well. Postoperatively his bowel function returned rather promptly and his diet was advanced accordingly. He was able to have some bowel movements and pass flatus, was weaned off his IV fluids and was considered ready for discharge home on December 30, 2016. DISCHARGE INSTRUCTIONS The patient was discharged eating a regular diet. He was encouraged to ambulate daily avoiding any heavy lifting or straining. All preop medications were to be resumed. The patient will be seen in the office one week's time for routine follow-up. Any problems prior to his scheduled office visit, he was encouraged to call for more urgent attention. MD RAFAELA Dolan/EN /7:12 PM /1:25 PM
== END 2016-12-30 13:24 | disposition home or self-care (01) | DRG 331 ==
LOC: HSDI 12-26 11:49 → N07B 12-26 17:39
PROVIDERS: ADMIT Colon & Rectal Surgery; ATTEND Colon & Rectal Surgery
PROC: 0DQB0ZZ Repair Ileum, Open Approach (ICD-10-PCS; principal; 2016-12-26 14:01)
DX: Z43.2 Encounter for attention to ileostomy (principal); Z85.048 Personal history of other malignant neoplasm of rectum, rectosigmoid junction, and anus
CPT/HCPCS: 80048; 80053; 81001; 85025; 85610; 85730; 86850; 86900; 86901; 94150; C9113; J0131; J0690; J1100; J1170; J1885; J2270; J2405; J2765; J3010; J3480; J7120

== ENCOUNTER 2017-09-02 10:53 | Observation (INO) | payer OTHER ==
[~2017-09-02] VITALS: Ht 177.8 cm; Wt 70.0 kg
[~2017-09-02 10:53] MED LIST changes: +ADDE30TA PO; +GABA600T PO; +LISI10TA3 PO; +SIMV20TA PO
[2017-09-02] MEDS ORDERED: DEXAMETHASONE SOD PHOS 4 MG/ML VIAL IV ONE (12:00)
[2017-09-02] MEDS ORDERED: LIDOCAINE HCL 1% PF 5 ML SYRINGE OTHER ONE (12:00)
[2017-09-02] MEDS ORDERED: METOPROLOL TARTRATE 25 MG TAB PO PRN (12:00)
[2017-09-02] MEDS ORDERED: CHLORHEXIDINE GLUCONATE 2 % 1 PACK (2 CLOTHS) TOPICAL PRN (12:00)
[2017-09-02] MEDS ORDERED: ONDANSETRON HCL 4 MG/2 ML VIAL IV ONE (12:00)
[2017-09-02] MEDS ORDERED: INSULIN HUMAN REGULAR 1,000 UNITS/10 ML VIAL SQ PRN (12:00)
[2017-09-02] MEDS ORDERED: LACTATED RINGER'S 1000 ML IV PRN (12:00)
[2017-09-02] MEDS ORDERED: POVIDONE IODINE 5% (ANTISEPSIS KIT) 4 APPLICATIONS EACH NARE PRN (12:00)
[2017-09-02] MEDS ORDERED: ROCURONIUM INJ 50 MG/5 ML SYRINGE IV PUSH ONE (12:00)
[2017-09-02] MEDS ORDERED: NEOSTIGMINE 5 MG/5 ML SYRINGE IV PUSH ONE (12:00)
[2017-09-02] MEDS ORDERED: SODIUM CHLORID 0.9% 500 ML IV PRN (12:00)
[2017-09-02] MEDS ORDERED: GLYCOPYRROLATE 1 MG/5 ML SYRINGE IV PUSH ONE (12:00)
[2017-09-02] MEDS ORDERED: LABETALOL HCL 100 MG/20 ML VIAL IV ONE (12:00)
[2017-09-02] MEDS ORDERED: PROPOFOL 200 MG/20 ML AMP IV ONE (12:00)
[2017-09-02] MEDS ORDERED: SODIUM CHLORIDE 0.9% FLUSH 10 ML FLUSH IV FLUSH PRN (12:15)
[2017-09-02 12:36] LABS: AUTOMATED NEUTROPHIL # 7.1 TH/MM3 (1.8-7.7); BASOPHIL % 0.4 % (0.0-2.0); EOSINOPHIL % 0.6 % (0.0-4.0); HEMATOCRIT 37.3 % (39.0-51.0); HEMOGLOBIN 12.5 GM/DL (13.0-17.0); LYMPH % 11.1 % (9.0-44.0); MEAN CELL VOLUME 88.1 FL (80.0-100.0); MEAN CORPUSCULAR HEMOGLOBIN 29.6 PG (27.0-34.0); MEAN CORPUSCULAR HGB CONC 33.6 % (32.0-36.0); MEAN PLATELET VOLUME 7.3 FL (7.0-11.0); MONO % 6.1 % (0.0-8.0); MONOCYTE # 0.5 TH/MM3 (0-0.9); NEUT % 81.8 % (16.0-70.0); PLATELET COUNT 366 TH/MM3 (150-450); RED BLOOD COUNT 4.24 MIL/MM3 (4.50-5.90); RED CELL DISTRIBUTION WIDTH 15.3 % (11.6-17.2); WHITE BLOOD COUNT 8.7 TH/MM3 (4.0-11.0)
[2017-09-02] MEDS ORDERED: ceFAZolin 2 GM PREMIX 50 ML ONE (13:31)
[2017-09-02] MEDS ORDERED: BUPIVACAINE/EPINEPHRINE 0.5% PF 30 ML VIAL ONE (13:31)
[2017-09-02] MEDS ORDERED: LIDOCAINE 1%/EPINEPHrine 1:100,000 SOLN 50 ML VIAL ONE (13:31)
[2017-09-02] MEDS ORDERED: ACETAMINOPHEN 1000 MG/100 ML 100 ML IV ONE (13:55)
[2017-09-02] MEDS ORDERED: MIDAZOLAM HCL 2 MG/2 ML VIAL ONE (13:55)
--- NOTE | 2017-09-02 13:55 | PD.HP.UP ---
H&P Update Note The Pre-Admit History and Physical Examination regarding the above named patient was reviewed (including, but not limited to, vital signs, heart, lungs, co-morbid conditions), and upon re-examination it is noted that: the patient's condition has not significantly changed since the last examination. Nimesh Piña MD Sep 02, 2017 13:55
[2017-09-02] MEDS ORDERED: SUGAMMADEX SODIUM 200 MG/2 ML VIAL IV PUSH ONE (15:58)
[2017-09-02] MEDS ORDERED: ONDANSETRON HCL 4 MG/2 ML VIAL IV PUSH PRN (16:00)
[2017-09-02] MEDS ORDERED: ACETAMINOPHEN 325 MG TAB PO PRN (16:00)
[2017-09-02] MEDS: PCA - TOTAL MG MORPHINE DELIVERED PER SHIFT SCH ×2 (16:00→22:00)
[2017-09-02] MEDS ORDERED: ENALAPRILAT 1.25 MG/ML VIAL IV PUSH PRN (16:00)
[2017-09-02] MEDS ORDERED: NALOXONE HCL 0.4 MG/ML AMP IV PUSH PRN (16:00)
[2017-09-02] MEDS ORDERED: BENZOCAINE 6 MG/MENTHOL 10 MG LOZENGE BUCCAL PRN (16:00)
[2017-09-02] MEDS ORDERED: ENALAPRILAT 2.5 MG/2 ML VIAL IV PUSH PRN (16:00)
[2017-09-02] MEDS ORDERED: ACETAMINOPHEN/HYDROcodone 325 MG/5 MG TAB PO PRN (16:00)
[2017-09-02] MEDS ORDERED: POTASSIUM CHLOR 40 MEQ PREMIX 100 ML IV PRN (16:00)
[2017-09-02] MEDS ORDERED: Post-op Orders (for Pharmacy) XX ONE (16:00)
[2017-09-02] MEDS ORDERED: KETOROLAC TROMETHAMINE 30 MG/ML (IVP) VIAL IVP PRN (16:00)
[2017-09-02] MEDS ORDERED: POTASSIUM CHLOR 20 MEQ PREMIX 100 ML IV PRN (16:00)
[2017-09-02] MEDS: D5-NS + KCL 20 MEQ INJ 1,000 ML IV SCH (16:30)
[2017-09-02] MEDS ORDERED: *morphine SULFATE 8 MG/ML PERIprocedure ONLY ONE ×2 (16:41→17:35)
[2017-09-02] MEDS ORDERED: DO NOT ADM ANY ANTICOAGULANT DRUGS PRN (17:00)
[2017-09-02] MEDS: PANTOPRAZOLE SODIUM 40 MG VIAL IVP SCH (17:59)
[2017-09-02] MEDS: PANTOPRAZOLE SOD 40 MG DELAYED RELEASE TAB PO SCH (18:00)
[2017-09-02] MEDS: MORPHINE SULFATE 30 MG/30 ML PCA IV SCH (18:07)
[2017-09-02 20:00] VITALS: BP 123/90; PULSE 102; RESP 18; TEMP 96.1; O2SAT 98
[2017-09-02] MEDS: METOCLOPRAMIDE HCL 10 MG/2 ML VIAL IVS SCH (22:48)
[2017-09-03] VITALS: BP 104/79; PULSE 92; RESP 18; TEMP 96.3; O2SAT 98
[2017-09-03] MEDS: MORPHINE SULFATE 30 MG/30 ML PCA IV SCH ×2 (00:24→10:44)
[2017-09-03] MEDS: D5-NS + KCL 20 MEQ INJ 1,000 ML IV SCH ×3 (01:50→21:50)
[2017-09-03] MEDS: PCA - TOTAL MG MORPHINE DELIVERED PER SHIFT SCH ×2 (06:00→14:00)
[2017-09-03 06:56] LABS: AUTOMATED NEUTROPHIL # 9.5 TH/MM3 (1.8-7.7); BASOPHIL % 0.1 % (0.0-2.0); HEMATOCRIT 35.1 % (39.0-51.0); HEMOGLOBIN 11.4 GM/DL (13.0-17.0); LYMPH % 7.6 % (9.0-44.0); LYMPHOCYTE # 0.9 TH/MM3 (1.0-4.8); MEAN CELL VOLUME 88.8 FL (80.0-100.0); MEAN CORPUSCULAR HEMOGLOBIN 28.8 PG (27.0-34.0); MEAN CORPUSCULAR HGB CONC 32.4 % (32.0-36.0); MEAN PLATELET VOLUME 7.5 FL (7.0-11.0); MONO % 8.5 % (0.0-8.0); NEUT % 83.8 % (16.0-70.0); PLATELET COUNT 378 TH/MM3 (150-450); RED BLOOD COUNT 3.96 MIL/MM3 (4.50-5.90); RED CELL DISTRIBUTION WIDTH 15.7 % (11.6-17.2); WHITE BLOOD COUNT 11.3 TH/MM3 (4.0-11.0)
[2017-09-03 07:15] LABS: BICARBONATE 27.4 MEQ/L (21.0-32.0); CALCIUM 8.2 MG/DL (8.5-10.1); CREATININE 0.72 MG/DL (0.60-1.30)
[2017-09-03 08:00] VITALS: BP 146/95; PULSE 97; RESP 17; TEMP 97.4; O2SAT 97
[2017-09-03] MEDS: PANTOPRAZOLE SODIUM 40 MG VIAL IVP SCH (09:00)
[2017-09-03] MEDS: PANTOPRAZOLE SOD 40 MG DELAYED RELEASE TAB PO SCH (09:04)
[2017-09-03] MEDS: METOCLOPRAMIDE HCL 10 MG/2 ML VIAL IVS SCH ×2 (09:06→20:52)
[2017-09-03 12:00] VITALS: BP 142/89; PULSE 93; RESP 18; TEMP 97.7; O2SAT 97
[2017-09-03 16:00] VITALS: BP 131/94; PULSE 95; RESP 18; TEMP 97.7; O2SAT 99
[2017-09-03 20:00] VITALS: BP 139/79; PULSE 104; RESP 18; TEMP 97.7; O2SAT 97
[2017-09-03] MEDS: ALVIMOPAN 12 MG CAPSULE PO SCH (20:49)
[2017-09-03] MEDS: ACETAMINOPHEN/HYDROcodone 325 MG/5 MG TAB PO PRN (20:50)
--- NOTE | 2017-09-03 22:30 | HHI.PR ---
Subjective Remarks C/R Surg POD #1 afebrile, VSS UO good shima PO Objective - Vital Signs Date Time Temp Pulse Resp B/P (MAP) Pulse Ox O2 Delivery O2 Flow Rate FiO2 09/03/17 20:00 97.7 104 18 139/79 (99) 97 09/02/17 18:30 Nasal Cannula 2 Result Diagram: 09/03/17 0620 09/03/17 0620 Objective Remarks PE alert Abd - tight, wound dry, min tympany A/P Assessment and Plan Imp: stable post-op OOB decr IVF slow PO Nimesh Piña MD Sep 03, 2017 22:30
[2017-09-03 23:59] VITALS: BP 115/84; PULSE 102; RESP 18; TEMP 99.9; O2SAT 94
[2017-09-04] MEDS: ACETAMINOPHEN/HYDROcodone 325 MG/5 MG TAB PO PRN ×2 (01:05→05:34)
[2017-09-04 06:23] LABS: AUTOMATED NEUTROPHIL # 6.5 TH/MM3 (1.8-7.7); BASOPHIL % 0.2 % (0.0-2.0); EOSINOPHIL % 0.5 % (0.0-4.0); HEMATOCRIT 24.4 % (39.0-51.0); HEMOGLOBIN 8.3 GM/DL (13.0-17.0); LYMPH % 9.3 % (9.0-44.0); LYMPHOCYTE # 0.7 TH/MM3 (1.0-4.8); MEAN CELL VOLUME 88.2 FL (80.0-100.0); MEAN PLATELET VOLUME 7.4 FL (7.0-11.0); MONO % 8.8 % (0.0-8.0); MONOCYTE # 0.7 TH/MM3 (0-0.9); NEUT % 81.2 % (16.0-70.0); PLATELET COUNT 268 TH/MM3 (150-450); RED BLOOD COUNT 2.77 MIL/MM3 (4.50-5.90); RED CELL DISTRIBUTION WIDTH 15.3 % (11.6-17.2)
[2017-09-04 06:43] LABS: BICARBONATE 27.1 MEQ/L (21.0-32.0); CALCIUM 8.1 MG/DL (8.5-10.1); CREATININE 0.73 MG/DL (0.60-1.30)
[2017-09-04 08:00] VITALS: BP 136/70; PULSE 102; RESP 17; TEMP 99.7; O2SAT 94
[2017-09-04] MEDS: PANTOPRAZOLE SODIUM 40 MG VIAL IVP SCH (08:28)
[2017-09-04] MEDS: PANTOPRAZOLE SOD 40 MG DELAYED RELEASE TAB PO SCH (08:30)
[2017-09-04] MEDS: METOCLOPRAMIDE HCL 10 MG/2 ML VIAL IVS SCH ×4 (08:30→23:44)
[2017-09-04] MEDS: ALVIMOPAN 12 MG CAPSULE PO SCH ×2 (08:30→19:47)
--- NOTE | 2017-09-04 10:17 | HHI.PR ---
Subjective Remarks C/R Surg POD #2 afebrile, VSS UO good shima PO\ +flatus Objective - Vital Signs Date Time Temp Pulse Resp B/P (MAP) Pulse Ox O2 Delivery O2 Flow Rate FiO2 09/04/17 08:00 99.7 102 17 136/70 (92) 94 09/02/17 18:30 Nasal Cannula 2 Result Diagram: 09/04/17 0545 09/04/17 0545 Objective Remarks PE alert Abd - softer, wound dry, min tympany A/P Assessment and Plan Imp: OOB - abd binder decr IVF slow PO Nimesh Piña MD Sep 04, 2017 10:17
[2017-09-04] MEDS ORDERED: FUROSEMIDE 20 MG/2 ML VIAL IV PUSH ONE (10:30)
[2017-09-04] MEDS: oxyCODONE/ACETAMINOPHEN 10 MG/325 MG TAB PO PRN ×3 (11:11→23:44)
[2017-09-04 12:00] VITALS: BP 120/78; PULSE 102; RESP 17; TEMP 99.5; O2SAT 95
[2017-09-04] MEDS: D5-NS + KCL 20 MEQ INJ 1,000 ML IV SCH (15:36)
[2017-09-04 16:00] VITALS: BP 151/84; PULSE 96; RESP 17; TEMP 98.5; O2SAT 97
[2017-09-04 20:00] VITALS: BP 137/87; PULSE 102; RESP 17; TEMP 98.9; O2SAT 98
--- NOTE | 2017-09-04 23:01 | MP ---
cc: LINH DE LEON M.D. DATE OF SURGERY: 09/04/2017 PREOPERATIVE DIAGNOSIS: Multiple ventral hernias, history of rectal cancer. PROCEDURE Exploratory laparotomy with repair of multiple ventral hernias. Lysis of adhesions. POSTOPERATIVE DIAGNOSIS Multiple ventral hernias, history of rectal cancer. SURGEON Dr. De Leon DESCRIPTION OF PROCEDURE: The patient was placed in the supine position. After adequate general anesthesia his abdomen was prepped with Betadine solution and draped in the usual sterile fashion. Initially the midline incision was reopened identifying a hernia sac around the umbilicus. The sac was opened and the perineal cavity explored. The incision was extended both cephalad and caudad identifying several other small hernias in both directions. After getting to more substantial fascia, subcutaneous planes were elevated on both right and left sides of the incision coming off the attenuated fascia along the midline back to healthier fascia. Exploration of the abdomen showed the liver and gallbladder be unremarkable. There were quite a few adhesions to the small bowel which appeared to be gently dilated. No point of obstruction was seen. The colon was similarly fairly dilated but no evidence of any peritoneal disease was seen. Several adhesions in the right lower quadrant were taken down in the region of his ileostomy closure. Next, the abdomen was then closed reapproximating the midline fascia with a running #1 PDS suture. There appeared to be good fascial closure without tension. Relaxing incisions on the left side was made to ensure less tension on the closure. The subcu tissues were irrigated copiously. The midline subcutaneous tissue was closed with several interrupted 3-0 Vicryl stitches to obliterate the space and the skin closed with a running subcuticular Vicryl suture. Wound area washed with normal saline and dried, sterile dressing of Telfa and gauze applied. The patient tolerated the procedure quite well and was brought to recovery room in stable condition. The sponge and needle counts were correct at the end of procedure. MD RAFAELA Dolan/JUAN DAVID /9:51 AM /10:47 PM
[2017-09-05] VITALS: BP 140/95; PULSE 100; RESP 20; TEMP 99.3; O2SAT 96
[2017-09-05] MEDS: oxyCODONE/ACETAMINOPHEN 10 MG/325 MG TAB PO PRN ×3 (06:23→20:02)
[2017-09-05] MEDS: METOCLOPRAMIDE HCL 10 MG/2 ML VIAL IVS SCH (06:23)
[2017-09-05 07:07] LABS: AUTOMATED NEUTROPHIL # 6.8 TH/MM3 (1.8-7.7); BASOPHIL % 0.4 % (0.0-2.0); EOSINOPHIL % 0.6 % (0.0-4.0); HEMATOCRIT 27.6 % (39.0-51.0); HEMOGLOBIN 9.5 GM/DL (13.0-17.0); LYMPH % 10.2 % (9.0-44.0); LYMPHOCYTE # 0.9 TH/MM3 (1.0-4.8); MEAN CELL VOLUME 87.8 FL (80.0-100.0); MEAN CORPUSCULAR HEMOGLOBIN 30.2 PG (27.0-34.0); MEAN CORPUSCULAR HGB CONC 34.5 % (32.0-36.0); MEAN PLATELET VOLUME 7.6 FL (7.0-11.0); MONO % 9.7 % (0.0-8.0); MONOCYTE # 0.8 TH/MM3 (0-0.9); NEUT % 79.1 % (16.0-70.0); PLATELET COUNT 339 TH/MM3 (150-450); RED BLOOD COUNT 3.15 MIL/MM3 (4.50-5.90); WHITE BLOOD COUNT 8.6 TH/MM3 (4.0-11.0)
--- NOTE | 2017-09-05 07:55 | HHI.PR ---
Subjective Remarks C/R Surg POD #3 afebrile, VSS UO good shima PO, adv as shima +flatus Objective - Vital Signs Date Time Temp Pulse Resp B/P (MAP) Pulse Ox O2 Delivery O2 Flow Rate FiO2 09/05/17 00:00 99.3 100 20 140/95 (110) 96 09/02/17 18:30 Nasal Cannula 2 Result Diagram: 09/05/17 0624 09/04/17 0545 Objective Remarks PE alert Abd - softer, wound dry, slightly red, ? hematoma lt side A/P Assessment and Plan Imp: OOB - abd binder decr IVF slow PO, adv Nimesh Piña MD Sep 05, 2017 07:55
[2017-09-05] MEDS ORDERED: METOCLOPRAMIDE HCL 10 MG/2 ML VIAL IVS PRN (08:00)
[2017-09-05] MEDS: D5-NS + KCL 20 MEQ INJ 1,000 ML IV SCH (08:16)
[2017-09-05 08:50] VITALS: BP 112/81; PULSE 83; RESP 16; TEMP 97.9; O2SAT 97
[2017-09-05] MEDS: ALVIMOPAN 12 MG CAPSULE PO SCH ×2 (09:00→20:07)
[2017-09-05] MEDS: VANCOMYCIN INJ 1,000 MG in SODIUM CHLOR 0.9% 250 ML INJ 250 ML IV SCH ×2 (09:00→20:07)
[2017-09-05] MEDS: PANTOPRAZOLE SOD 40 MG DELAYED RELEASE TAB PO SCH (09:49)
[2017-09-05] MEDS: PANTOPRAZOLE SODIUM 40 MG VIAL IVP SCH (09:50)
[2017-09-05 12:45] VITALS: BP 118/70; PULSE 86; RESP 18; TEMP 98.1; O2SAT 96
[2017-09-05 18:25] VITALS: BP 118/70; PULSE 86; RESP 16; TEMP 98.1; O2SAT 96
[2017-09-05 20:00] VITALS: BP 134/91; PULSE 87; RESP 20; TEMP 98.9; O2SAT 96
[2017-09-06] VITALS: BP 136/92; PULSE 88; RESP 18; TEMP 99.6; O2SAT 95
[2017-09-06] MEDS: oxyCODONE/ACETAMINOPHEN 10 MG/325 MG TAB PO PRN ×2 (01:55→08:05)
[2017-09-06] MEDS ORDERED: OXYC1TAB36 PO (07:36)
[2017-09-06 08:00] VITALS: BP 122/81; PULSE 79; RESP 19; TEMP 97.9; O2SAT 98
[2017-09-06] MEDS: ALVIMOPAN 12 MG CAPSULE PO SCH (08:03)
[2017-09-06] MEDS: PANTOPRAZOLE SOD 40 MG DELAYED RELEASE TAB PO SCH (08:03)
[2017-09-06] MEDS: PANTOPRAZOLE SODIUM 40 MG VIAL IVP SCH (08:03)
[2017-09-06] MEDS: VANCOMYCIN INJ 1,000 MG in SODIUM CHLOR 0.9% 250 ML INJ 250 ML IV SCH (08:04)
--- NOTE | 2017-09-06 10:11 | HHI.PR ---
Subjective Remarks C/R Surg POD #4 afebrile, VSS UO good shima PO, adv as shima +flatus/BM Objective - Vital Signs Date Time Temp Pulse Resp B/P (MAP) Pulse Ox O2 Delivery O2 Flow Rate FiO2 09/06/17 08:00 97.9 79 19 122/81 (95) 98 09/02/17 18:30 Nasal Cannula 2 Result Diagram: 09/05/17 0624 09/04/17 0545 Objective Remarks PE alert Abd - softer, wound dry, slightly red - better, ? hematoma lt side -stable A/P Assessment and Plan Imp: OOB - abd binder decr IVF slow PO, adv dc plans Nimesh Piña MD Sep 06, 2017 10:11
== END 2017-09-06 11:57 | disposition home or self-care (01) ==
LOC: HSDC 10:53 → HSDI 16:02 → N07B 18:44
PROVIDERS: ADMIT Colon & Rectal Surgery; ATTEND Colon & Rectal Surgery
DX: K43.9 Ventral hernia without obstruction or gangrene (principal); Z85.048 Personal history of other malignant neoplasm of rectum, rectosigmoid junction, and anus
CPT/HCPCS: 00832; 49560; 80048; 85025; 94150; 96365; 96366; 96375; 96376; C9113; G0378; J0131; J0690; J1100; J1885; J1940; J2270; J2405; J2710; J2765; J3010; J3370; J3480; J7050; J7120; J2250